=== PATIENT | male | born 2000 | race Caucasian/White ===

== ENCOUNTER 2024-10-19 20:13 | Emergency (ER) | payer OTHER ==
[~2024-10-19] VITALS: Ht 177.8 cm; Wt 82.0 kg
[2024-10-19 20:49] LABS: BILIRUBIN, URINE NEGATIVE (negative); BLOOD/HGB, URINE SMALL (Negative); KETONE, URINE NEGATIVE (Negative); LEUK ESTERASE, URINE NEGATIVE (negative); NITRITE, URINE NEGATIVE (negative)
[2024-10-19 20:51] LABS: BASOPHILS 0.8 % (0-2); HEMATOCRIT 44.1 % (35.0-50.0); HEMOGLOBIN 15.6 g/dL (12.0-18.0); LYMPHOCYTES 26.9 % (24-44); MCH 29.1 (27-36); MCHC 35.4 g/dl (30-36); MCV 82.2 fl (81-99); MONOCYTES 8.8 % (0-12); NEUTROPHILS 62.5 % (39-80); PLATELET COUNT 211 K/uL (140-440); RBC 5.37 M/ul (4.3-5.7); RDW 13.8 (10.5-15.0)
[2024-10-19 21:00] LABS: BACTERIA, URINE NONE SEEN /hpf (negative); CASTS, URINE NONE SEEN \\lpf; COLLECTION TYPE, URINE CLEAN CATCH; CRYSTALS, URINE NONE SEEN (0-1+); EPITHELIAL CELLS, URINE NONE SEEN /lpf (0-1+); REFLEX CULTURE, URINE No (No)
[2024-10-19 21:07] LABS: AMPHETAMINES, URINE NEGATIVE (NEGATIVE); BARBITURATES, URINE NEGATIVE (NEGATIVE); BENZODIAZEPINE, URINE NEGATIVE (NEGATIVE); BUPRENORPHINE, URINE NEGATIVE (NEGATIVE); CANNABINOID, URINE NEGATIVE (NEGATIVE); COCAINE, URINE NEGATIVE (NEGATIVE); ECSTASY, URINE NEGATIVE (NEGATIVE); FENTANYL, URINE NEGATIVE (NEGATIVE); METHADONE, URINE NEGATIVE (NEGATIVE); OPIATES, URINE NEGATIVE (NEGATIVE); OXYCODONE, URINE NEGATIVE (NEGATIVE); PHENCYCLIDINE, URINE NEGATIVE (NEGATIVE)
[2024-10-19 21:18] LABS: ACETAMINOPHEN 0 ug/mL (10-30); ALBUMIN 4.5 g/dL (3.4-5.0); ALBUMIN/GLOBULIN RATIO 1.32 (1.1-2.4); ALCOHOL, MEDICAL <3 ng/dL (<3); ALKALINE PHOSPHATASE 80 U/L (46-116); ALT (SGPT) 37 U/L (14-59); ANION GAP 10.7 (7-21); AST (SGOT) 21 U/L (15-37); BILIRUBIN, TOTAL 0.6 mg/dL (0.2-1.0); CALCIUM 8.9 mg/dL (8.5-10.1); CARBON DIOXIDE 29 mmol/L (21-32); CHLORIDE 103 mmol/L (98-107); GLOMERULAR FILTRATION RATE,EST 109 mL/min (>60); POTASSIUM 3.7 mmol/L (3.5-5.1); PROTEIN, TOTAL 7.9 g/dL (6.4-8.2); SALICYLATE 0.8 mg/dL (2.8-20.0); TSH, 3RD GENERATION 3.539 uIU/mL (0.358-3.740); UREA NITROGEN 12 mg/dL (7-18)
[2024-10-19 23:00] VITALS: BP 140/72
== END 2024-10-19 23:00 | disposition home or self-care (01) ==
LOC: ED 20:13
PROVIDERS: Emergency Medicine
DX: R45.851 Suicidal ideations (principal)
CPT/HCPCS: 36415; 80053; 80307; 81001; 84443; 85025; 99284; G0480